=== PATIENT | female | born 1995 | race Caucasian/White ===

== ENCOUNTER 2023-01-24 13:22 | Emergency (ER) | payer OTHER ==
[~2023-01-24] VITALS: Ht 170.2 cm; Wt 99.8 kg
[2023-01-24] MEDS ORDERED: ZOFRAN (13:39)
[2023-01-24] MEDS ORDERED: PROZAC (13:39)
[2023-01-24] MEDS ORDERED: QUET25TA3 (13:39)
[2023-01-24] MEDS ORDERED: ONDANSETRON 4 MG/2 ML VIAL IV ONE ×2 (14:00→15:15)
[2023-01-24] MEDS ORDERED: IV NORMAL SALINE 1000 ML BAG IV ONE ×2 (14:00→15:30)
[2023-01-24] MEDS ORDERED: HYDROMORPHONE 1 MG/1 ML DISP.SYRIN IV ONE ×2 (14:00→16:15)
[2023-01-24] MEDS ORDERED: ONDANSETRON 4 MG/2 ML VIAL ONE ×2 (14:02→15:22)
[2023-01-24] MEDS ORDERED: HYDROMORPHONE 1 MG/1 ML DISP.SYRIN ONE ×2 (14:02→16:04)
[2023-01-24 14:13] LABS: BASOPHILS % (AUTO) 0.3 % (0.0-2.0); EOSINOPHILS % (AUTO) 0.4 % (0.0-7.0); HEMATOCRIT 42.8 % (31.2-41.9); HEMOGLOBIN 14.7 g/dL (10.9-14.3); LYMPHOCYTES # (AUTO) 1.2 K/uL (0.8-4.8); LYMPHOCYTES % (AUTO) 13.7 % (20.5-51.5); MEAN CORPUSCULAR HGB CONC 34 g/dL (32.3-35.6); MEAN CORPUSCULAR VOLUME 90.2 fL (75.5-95.3); MONOCYTES # (AUTO) 0.2 K/uL (0.1-1.30); MONOCYTES % (AUTO) 2.4 % (0.0-11.0); NEUTROPHILS # (AUTO) 7.5 K/uL (1.8-8.9); NEUTROPHILS % (AUTO) 83.2 % (38.5-71.5); PLATELET COUNT (AUTO) 252 K/uL (179-408); RED BLOOD CELL COUNT(AUTO) 4.74 MIL/uL (3.63-4.92); WHITE BLOOD COUNT (AUTO) 9.1 K/uL (3.8-11.8)
[2023-01-24 14:50] LABS: ALBUMIN 4.7 g/dL (3.4-5.0); BILIRUBIN,DIRECT 0.1 mg/dL (0.0-0.2); BILIRUBIN,TOTAL 0.3 mg/dL (0.2-1.0); CALCIUM 8.9 mg/dL (8.5-10.1); CREATININE 0.9 mg/dL (0.6-1.3); POTASSIUM 3.1 mmol/L (3.5-5.1); TOTAL PROTEIN, SERUM 7.9 g/dL (6.4-8.2)
[2023-01-24] MEDS ORDERED: FAMOTIDINE. 20 MG/2 ML VIAL IV ONE ×2 (15:15)
[2023-01-24] MEDS ORDERED: diphenhydrAMINE 50 MG/1 ML VIAL ONE (15:15)
[2023-01-24] MEDS ORDERED: KETOROLAC TROMETHAMINE 15 MG INJ IVP ONE (15:15)
[2023-01-24] MEDS ORDERED: KETOROLAC TROMETHAMINE 15 MG INJ ONE (15:15)
[2023-01-24] MEDS ORDERED: diphenhydrAMINE 50 MG/1 ML VIAL IV ONE (15:15)
[2023-01-24 15:48] LABS: ALBUMIN 4.7 g/dL (3.4-5.0); BILIRUBIN,DIRECT 0.1 mg/dL (0.0-0.2); BILIRUBIN,TOTAL 0.3 mg/dL (0.2-1.0); CALCIUM 9.1 mg/dL (8.5-10.1); CREATININE 0.8 mg/dL (0.6-1.3); POTASSIUM 3.1 mmol/L (3.5-5.1); TOTAL PROTEIN, SERUM 7.9 g/dL (6.4-8.2)
[2023-01-24] MEDS ORDERED: CALCIUM CARBONATE 500 MG TAB.CHEW PO STA (15:51)
[2023-01-24] MEDS ORDERED: CALCIUM CARBONATE 500 MG TAB.CHEW ONE (15:53)
[2023-01-24] MEDS ORDERED: PROMETHAZINE HCL INJ 12.5 MG in IV DEXTROSE 5% 50 ML IM PRN (16:00)
[2023-01-24] MEDS ORDERED: PROCHLORPERAZINE EDISYLATE 10 MG/2 ML VIAL IV ONE (16:00)
[2023-01-24] MEDS ORDERED: PROCHLORPERAZINE EDISYLATE 10 MG/2 ML VIAL ONE ×2 (16:00→20:09)
[2023-01-24] MEDS ORDERED: ONDA4TAB5 PO (19:02)
[2023-01-24] MEDS ORDERED: POTASSIUM BICARBONATE/CIT AC 25 MEQ TABLET.EFF ONE (19:09)
[2023-01-24 19:14] VITALS: BP 132/70; TEMP 98; O2SAT 99
[2023-01-24] MEDS ORDERED: POTASSIUM BICARBONATE/CIT AC 25 MEQ TABLET.EFF PO ONE (19:15)
[2023-01-24] MEDS ORDERED: HYDROMORPHONE 1 MG/1 ML DISP.SYRIN IM ONE (20:00)
[2023-01-24] MEDS ORDERED: PROCHLORPERAZINE EDISYLATE 10 MG/2 ML VIAL IM ONE (20:00)
[2023-01-24] MEDS ORDERED: HYDROMORPHONE 2 MG/1 ML DISP.SYRIN ONE (20:09)
== END 2023-01-24 22:10 | disposition home or self-care (01) ==
LOC: ER 13:23
DX: R11.2 Nausea with vomiting, unspecified (principal); R10.2 Pelvic and perineal pain; R10.13 Epigastric pain; R07.89 Other chest pain; Z79.899 Other long term (current) drug therapy
CPT/HCPCS: 99285; 96375; 96374; 71045; 96361; 80048 ×2; 83690 ×2; 85025; 84702; 36415; 96376; 96372 ×2; 80076 ×2; J1200; J3490; J1885; J2405 ×2; J0780 ×2; J2550; J1170 ×3; J7040 ×2; A4663